=== PATIENT | male | born 1985 | race Caucasian/White ===

== ENCOUNTER 2018-02-02 19:39 | Emergency (ER) | payer BC ==
[~2018-02-02] VITALS: Ht 177.8 cm; Wt 64.0 kg
[2018-02-02] MEDS ORDERED: PREDNISONE 20MG TABLET PO ONE (20:15)
[2018-02-02] MEDS ORDERED: FAMOTIDINE 20MG TABLET PO ONE (20:15)
[2018-02-02 22:36] VITALS: BP 130/88
== END 2018-02-02 22:39 | disposition home or self-care (01) ==
LOC: ER 20:51
DX: T78.1XXA Other adverse food reactions, not elsewhere classified, initial encounter (principal); I10 Essential (primary) hypertension; X58.XXXA Exposure to other specified factors, initial encounter
CPT/HCPCS: 99283; J7512